=== PATIENT | male | born 1960 | race Caucasian/White ===

== ENCOUNTER 2017-04-23 11:24 | Emergency (ER) | payer OTHER ==
[2017-04-23] MEDS ORDERED: LORazepam 2 MG/ML INJ IV STA (11:50)
--- NOTE | 2017-04-23 11:53 | ED ---
General Adult HPI - General Chief complaint: Seizure Stated complaint: Seizure Time Seen by Provider: 04/23/17 11:42 Source: patient, EMS, RN notes reviewed Mode of arrival: EMS Limitations: no limitations - History of Present Illness Initial comments: Patient's a 57-year-old male who presents emergency room today by EMS, the chief complaint of a seizure that occurred while he was at rehab. He admits that he's been at rehab for the last 2 weeks for alcohol abuse. Patient states that he was out of smoke break and had a or immediately got down to the ground. States his neck seemed he was waking up in the nurse's office. He does admit that he has a history of seizures. States takes Keppra. Since been taking this medication. Patient states that he does have some cramping in his calves at this time is still feeling somewhat shaky. He states he was consistent with his usual areas of the past. Patient does admit that is also present. Her usual self. He states that he thought about taking a bunch pills. He states that he has tried affect on thoughts in the past. Patient denies any other complaints or associated symptoms. Patient denies any recent fever, chills, shortness of breath, chest pain, back pain, abdominal pain, nausea or vomiting, numbness or tingling, dysuria or hematuria, constipation or diarrhea, headaches or visual changes, or any other complaints. - Related Data Home Medications Medication Instructions Recorded Confirmed Acetaminophen Tab [Tylenol Tab] 650 mg PO Q4H PRN 04/23/17 04/23/17 Calcium Carb/Magnesium Ox,Carb 2 tab PO TID PRN 04/23/17 04/23/17 [Hayder-Mag 500-250 MG Chewable] Chlorpheniramine Maleate 4 mg PO Q4H PRN 04/23/17 04/23/17 [Chlor-Trimeton] Codeine Phosphate/Guaifenesin 10 ml PO Q4H PRN 04/23/17 04/23/17 [Guaiatussin AC Liquid] Gabapentin [Neurontin] 300 mg PO TID@0600,1500,2200 04/23/17 04/23/17 Ibuprofen [Motrin] 600 mg PO Q6HR PRN 04/23/17 04/23/17 Loperamide [Imodium] 2 mg PO QID PRN 04/23/17 04/23/17 Mirtazapine [Remeron] 15 - 30 mg PO HS 04/23/17 04/23/17 Multivitamins, Thera [Multivitamin 1 tab PO DAILY 04/23/17 04/23/17 (formulary)] Ondansetron HCl [Zofran] 8 mg PO Q6H PRN 04/23/17 04/23/17 Thiamine [Vitamin B-1] 100 mg PO DAILY 04/23/17 04/23/17 Tigan 200mg Im 200 mg IM Q6H PRN 04/23/17 04/23/17 Tigan 300mg Suppository 300 mg RECTAL Q6H PRN 04/23/17 04/23/17 Trimethobenzamide HCl [Tigan] 300 mg PO Q6H PRN 04/23/17 04/23/17 Zofran 2mg/Ml 4 mg IM Q6H PRN 04/23/17 04/23/17 cloNIDine HCL [Catapres] 0.1 - 0.3 mg PO BID PRN 04/23/17 04/23/17 levETIRAcetam [Keppra] 750 mg PO Q12HR 04/23/17 04/23/17 Allergies Allergy/AdvReac Type Severity Reaction Status Date / Time Fish Containing Products Allergy Unknown Verified 04/23/17 11:39 Childhood Review of Systems ROS Statement: Those systems with pertinent positive or pertinent negative responses have been documented in the HPI. ROS Other: All systems not noted in ROS Statement are negative. Past Medical History Past Medical History: Cancer, Seizure Disorder Additional Past Medical History / Comment(s): HEP C, ETOH ABUSE History of Any Multi-Drug Resistant Organisms: None Reported Past Surgical History: Bowel Resection, Hernia Repair Past Psychological History: ADD/ADHD, Anxiety, Depression Smoking Status: Current every day smoker Past Alcohol Use History: None Reported, Abuse, Daily Past Drug Use History: None Reported General Exam - General Exam Comments Initial Comments: General: The patient is awake and alert, in no distress, and does not appear acutely ill. Eye: Pupils are equal, round and reactive to light, extra-ocular movements are intact. No nystagmus. There is normal conjunctiva bilaterally. No signs of icterus. Ears, nose, mouth and throat: There are moist mucous membranes and no oral lesions. Neck: The neck is supple, there is no tenderness or JVD. Cardiovascular: There is a regular rate and rhythm. No murmur, rub or gallop is appreciated. Respiratory: Lungs are clear to auscultation, respirations are non-labored, breath sounds are equal. No wheezes, stridor, rales, or rhonchi. Gastrointestinal: Soft, non-distended, non-tender abdomen without masses or organomegaly noted. There is no rebound or guarding present. No CVA tenderness. Bowel sounds are unremarkable. Musculoskeletal: Normal ROM, no tenderness. Strength 5/5. Sensation intact. Pulses equal bilaterally 2+. Neurological: A&O x 3. CN II-XII intact, There are no obvious motor or sensory deficits. Coordination appears grossly intact. Speech is normal. Skin: Skin is warm and dry and no rashes or lesions are noted. Limitations: no limitations Course Vital Signs 04/23/17 04/23/17 04/23/17 11:28 13:07 14:17 Temperature 97.4 F L Pulse Rate 65 61 67 Respiratory 17 16 17 Rate Blood Pressure 156/84 137/69 157/75 O2 Sat by Pulse 96 96 96 Oximetry Medical Decision Making - Medical Decision Making Case discussed in detail with attending physician Dr. Jenkins. Patient reexamined at this time shows no signs of distress resting comfortably. His labs been reviewed are unremarkable. Patient resting comfortably. Given Ativan here in emergency room. He is currently on Appears currently at [facility] for alcohol withdrawal. Last drink was over 2 weeks ago. At this time is feeling well. Discomfort when returning to [facility]. Patient will be discharged home. He was seen here the emergency room by mental health who also recommend that he may be discharged to [facility]. He will be continued be monitored there. - Lab Data Result diagrams: 04/23/17 13:00 04/23/17 13:00 Lab Results 04/23/17 04/23/17 Range/Units 13:00 13:00 WBC 4.5 (3.8-10.6) k/uL RBC 3.84 L (4.30-5.90) m/uL Hgb 13.4 (13.0-17.5) gm/dL Hct 39.6 (39.0-53.0) % MCV 103.2 H (80.0-100.0) fL MCH 35.0 (25.0-35.0) pg MCHC 33.9 (31.0-37.0) g/dL RDW 12.2 (11.5-15.5) % Plt Count 143 L (150-450) k/uL Neutrophils % 64 % Lymphocytes % 19 % Monocytes % 12 % Eosinophils % 2 % Basophils % 0 % Neutrophils # 2.9 (1.3-7.7) k/uL Lymphocytes # 0.9 L (1.0-4.8) k/uL Monocytes # 0.5 (0-1.0) k/uL Eosinophils # 0.1 (0-0.7) k/uL Basophils # 0.0 (0-0.2) k/uL Macrocytosis Slight Sodium 134 L (137-145) mmol/L Potassium 5.2 H (3.5-5.1) mmol/L Chloride 106 (98-107) mmol/L Carbon Dioxide 23 (22-30) mmol/L Anion Gap 5 mmol/L BUN 18 (9-20) mg/dL Creatinine 0.70 (0.66-1.25) mg/dL Est GFR (MDRD) Af Amer >60 (>60 ml/min/1.73 sqM) Est GFR (MDRD) Non-Af >60 (>60 ml/min/1.73 sqM) Glucose 80 (74-99) mg/dL Calcium 9.3 (8.4-10.2) mg/dL Total Bilirubin 0.9 (0.2-1.3) mg/dL AST 102 H (17-59) U/L ALT 105 H (21-72) U/L Alkaline Phosphatase 78 (38-126) U/L Total Protein 7.3 (6.3-8.2) g/dL Albumin 3.6 (3.5-5.0) g/dL Disposition Clinical Impression: Generalized seizure Disposition: HOME SELF-CARE Condition: Good Instructions: Recurrent Seizures in Adults (ED) Additional Instructions: Please use medication as discussed. Please follow-up with family doctor in the next 2 days of symptoms have not improved. Please return to emergency room if the symptoms increase or worsen or for any other concerns. Referrals: None,Stated [Primary Care Provider] - 1-2 days Time of Disposition: 14:25
[2017-04-23] MEDS ORDERED: LORazepam 1 MG TAB PO STA (12:43)
[2017-04-23 13:15] LABS: Basophils % (A) 0 %; CH 35.9; CHCM 34.9; Eosinophils # (A) 0.1 k/uL (0-0.7); Eosinophils % (A) 2 %; HCT 39.6 % (39.0-53.0); HGB 13.4 gm/dL (13.0-17.5); Luc # (Auto) 0.15; Luc % (Auto) 3; Lymphocytes # (A) 0.9 k/uL (1.0-4.8); Lymphocytes % (A) 19 %; MCHC 33.9 g/dL (31.0-37.0); MCV 103.2 fL (80.0-100.0); Macrocytosis Slight; Mean Platelet Volume 7.4; Monocytes # (A) 0.5 k/uL (0-1.0); Monocytes % (A) 12 %; Neutrophils # (A) 2.9 k/uL (1.3-7.7); Neutrophils % (A) 64 %; RBC 3.84 m/uL (4.30-5.90); RDW 12.2 % (11.5-15.5); WBC 4.5 k/uL (3.8-10.6)
[2017-04-23 13:27] LABS: ALT 105 U/L (21-72); AST 102 U/L (17-59); Alkaline Phosphatase 78 U/L (38-126); Anion Gap 5 mmol/L; Blood Urea Nitrogen 18 mg/dL (9-20); Calcium 9.3 mg/dL (8.4-10.2); Carbon Dioxide 23 mmol/L (22-30); Chloride 106 mmol/L (98-107); Glucose 80 mg/dL (74-99); Non-African American GFR(MDRD) >60 (>60 ml/min/1.73 sqM); Sodium 134 mmol/L (137-145); Total Bilirubin 0.9 mg/dL (0.2-1.3); Total Protein 7.3 g/dL (6.3-8.2)
[2017-04-23 13:29] LABS: Potassium 5.2 mmol/L (3.5-5.1)
[2017-04-23 14:38] VITALS: BP 163/80; PULSE 85; RESP 18; TEMP 98
[2017-04-23 14:44] LABS: Appearance,Urine Clear (Clear); Bilirubin,Urine Negative (Negative); Glucose,Urine (UA) Negative (Negative); Ketones,Urine Negative (Negative); Leukocyte Esterase,Urine Negative (Negative); Nitrite,Urine Negative (Negative); PH, Urine 7.5 (5.0-8.0); Protein,Urine Negative (Negative); Specific Gravity,Urine 1.009 (1.001-1.035); UA Billing (MACRO vs. MICRO) CHEM; Urobilinogen,Urine <2.0 mg/dL (<2.0)
== END 2017-04-23 15:07 | disposition home or self-care (01) ==
LOC: EC 11:24
DX: G40.409 Other generalized epilepsy and epileptic syndromes, not intractable, without status epilepticus (principal); F10.10 Alcohol abuse, uncomplicated; F32.9 Major depressive disorder, single episode, unspecified; F41.9 Anxiety disorder, unspecified; F17.200 Nicotine dependence, unspecified, uncomplicated; Z79.899 Other long term (current) drug therapy; Z91.013 Allergy to seafood
CPT/HCPCS: 82075; 36415; 80053; 80177; 85025; 81003; 80306; 99284; 96374; 96376; J2060